=== PATIENT | female | born 1980 | race Caucasian/White ===

== ENCOUNTER 2018-05-18 19:40 | Emergency (ER) | payer OTHER, BC ==
[~2018-05-18] VITALS: Ht 154.9 cm; Wt 88.0 kg
[2018-05-18 19:40] VITALS: BP 122/56
[2018-05-18] MEDS: ONDANSETRON ODT 4 MG TAB.RAPDIS. PO ONE (20:40)
[2018-05-18] MEDS: CYCLOBENZAPRINE 10 MG TABLET. PO ONE (20:40)
[2018-05-18] MEDS: NAPROXEN 500 MG TABLET PO STA (20:40)
[2018-05-18] MEDS: HYDROcodone/APAP 5/325MG 1 TAB TABLET PO ONE (20:41)
[2018-05-18] MEDS ORDERED: CYCL10TA2 PO (22:09)
[2018-05-18] MEDS ORDERED: DICL50TA4 PO (22:09)
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
== END 2018-05-18 22:29 | disposition home or self-care (01) ==
LOC: ER 19:40
DX: S40.012A Contusion of left shoulder, initial encounter (principal); S60.212A Contusion of left wrist, initial encounter; S50.02XA Contusion of left elbow, initial encounter; V43.52XA Car driver injured in collision with other type car in traffic accident, initial encounter; Y93.89 Activity, other specified; Y92.410 Unspecified street and highway as the place of occurrence of the external cause; Y99.8 Other external cause status
CPT/HCPCS: 73030; 73080; 73090; 73130; 99284; Q0162